=== PATIENT | female | born 1945 | race Caucasian/White ===

== ENCOUNTER → 2016-11-30 | Outpatient (CLI) | payer MEDICARE | END | disposition home or self-care (01) | LOC: CFH 09:06 | PROVIDERS: ATTEND Internal Medicine | DX: Z12.31 Encounter for screening mammogram for malignant neoplasm of breast (principal); R92.1 Mammographic calcification found on diagnostic imaging of breast; Z85.3 Personal history of malignant neoplasm of breast; Z92.3 Personal history of irradiation; Z98.890 Other specified postprocedural states | CPT/HCPCS: G0202 ==

== ENCOUNTER → 2016-12-02 | Outpatient (CLI) | payer MEDICARE | END | disposition home or self-care (01) | LOC: CFH 08:10 | PROVIDERS: ATTEND Internal Medicine | DX: R92.1 Mammographic calcification found on diagnostic imaging of breast (principal); Z85.3 Personal history of malignant neoplasm of breast | CPT/HCPCS: G0206 ==

== ENCOUNTER 2016-12-16 09:06 | Day surgery (SDC) | payer MEDICARE ==
[2016-12-13 09:39] VITALS: BP 166/82
[~2016-12-16] VITALS: Ht 165.1 cm; Wt 46.0 kg
[~2016-12-16 09:06] MED LIST: CALC1CAP8 PO; CETI10CA PO; CHOL10003 PO
[2016-12-16] MEDS ORDERED: ACET-1600 PO (11:10)
[2016-12-16] MEDS ORDERED: ZOLP-413 PO (11:10)
[2016-12-16] MEDS ORDERED: LACTATED RINGERS 1,000 ML IV SCH (11:12)
[2016-12-16] MEDS ORDERED: LIDOCAINE 1%, 2ML ONE (11:18)
[2016-12-16] MEDS ORDERED: SODIUM BICARBONATE 4.2%, 5ML ONE (11:28)
[2016-12-16] MEDS ORDERED: LIDOCAINE 1%-EPI 1:100K, 20ML ONE (11:28)
[2016-12-16] MEDS ORDERED: LIDOCAINE 1%, 2ML SQ PRN (11:30)
[2016-12-16] MEDS ORDERED: BUPIVACAINE/PF-EPI 0.5% 1:200K ONE (13:00)
[2016-12-16] MEDS ORDERED: FENTANYL PF 100 MCG/2ML ONE (13:01)
[2016-12-16] MEDS ORDERED: MIDAZOLAM 1 MG/ML, 2ML ONE (13:01)
[2016-12-16] MEDS ORDERED: CEFAZOLIN 1,000 MG ONE (13:08)
[2016-12-16] MEDS ORDERED: PROPOFOL 10 MG/ML, 20ML ONE (13:08)
[2016-12-16] MEDS ORDERED: DEXAMETHASONE 4 MG/ML, 1ML ONE (13:08)
[2016-12-16] MEDS ORDERED: ONDANSETRON 2MG/ML, 2ML ONE (13:08)
[2016-12-16] MEDS ORDERED: SUCCINYLCHOLINE 20 MG/ML, 10ML ONE (13:08)
[2016-12-16] MEDS ORDERED: ONDANSETRON 2MG/ML, 2ML IVPush PRN (13:30)
[2016-12-16] MEDS ORDERED: OXYcodone 5 MG/5 ML ORAL.SOL UDC PO PRN (13:30)
[2016-12-16] MEDS ORDERED: MEPERIDINE/PF 25MG/0.5ML IVPush PRN (13:30)
[2016-12-16] MEDS ORDERED: ALBUTEROL SULFATE 2.5 MG/3 ML NPPB PRN (13:30)
[2016-12-16] MEDS ORDERED: LABETALOL 5MG/ML, 20ML IV PRN (13:30)
[2016-12-16] MEDS ORDERED: FENTANYL PF 100 MCG/2ML IV PRN (13:30)
[2016-12-16] MEDS ORDERED: PROMETHAZINE 25 MG/ML, 1ML IV PRN (13:30)
[2016-12-16] MEDS ORDERED: MIDAZOLAM 1 MG/ML, 2ML IV PRN (13:30)
[2016-12-16] MEDS ORDERED: hydrALAzine 20 MG/ML, 1ML IV PRN (13:30)
[2016-12-16] MEDS ORDERED: HYDROmorphone 1 MG/ML, 1ML IV PRN (13:30)
[2016-12-16] MEDS ORDERED: ACETAMINOPHEN 650 MG/20.3 ML UDC ONE (14:26)
[2016-12-16] MEDS ORDERED: OXYcodone 5 MG/5 ML ORAL.SOL UDC ONE (14:27)
[2016-12-16] MEDS ORDERED: ACETAMINOPHEN 650 MG/20.3 ML UDC PO ONE (15:00)
== END 2016-12-16 15:50 | disposition home or self-care (01) ==
LOC: CFH 09:06 → OUT 15:50
PROVIDERS: ATTEND Surgery
DX: N60.21 Fibroadenosis of right breast (principal); Z85.3 Personal history of malignant neoplasm of breast; Z85.038 Personal history of other malignant neoplasm of large intestine; Z80.6 Family history of leukemia; Z82.49 Family history of ischemic heart disease and other diseases of the circulatory system; Z82.3 Family history of stroke; Z88.6 Allergy status to analgesic agent; Z88.1 Allergy status to other antibiotic agents; Z87.891 Personal history of nicotine dependence; Z72.89 Other problems related to lifestyle; Z90.710 Acquired absence of both cervix and uterus; Z90.11 Acquired absence of right breast and nipple
CPT/HCPCS: 19125; 19281; 88307; 93005; J0330; J0690; J1100; J2250; J2405; J2704; J3010; J3490; J7120

== ENCOUNTER → 2018-01-18 | Outpatient (CLI) | payer MEDICARE ==
[~2018-01-18] MED LIST changes: +ACET-1600 PO; +ZOLP-413 PO
== END | disposition home or self-care (01) ==
LOC: CFH 08:07
PROVIDERS: ATTEND Internal Medicine
DX: Z12.31 Encounter for screening mammogram for malignant neoplasm of breast (principal); M81.8 Other osteoporosis without current pathological fracture; M89.9 Disorder of bone, unspecified; N95.1 Menopausal and female climacteric states
CPT/HCPCS: 77063; 77080; 77067

== ENCOUNTER 2019-01-24 13:28 | Outpatient (CLI) | payer MEDICARE ==
[2019-01-24] MEDS ORDERED: GADOBUTROL 7.5 MMOL/7.5 ML VIAL ONE (14:47)
== END 2019-01-24 23:59 | disposition home or self-care (01) ==
LOC: CFH 13:28
PROVIDERS: ATTEND Internal Medicine
DX: Z85.09 Personal history of malignant neoplasm of other digestive organs (principal); Z85.3 Personal history of malignant neoplasm of breast
CPT/HCPCS: A9585; C8908; C8937

== ENCOUNTER → 2020-05-23 | Outpatient (CLI) | payer MEDICARE | END | disposition home or self-care (01) | LOC: CFH 09:54 | PROVIDERS: ATTEND Internal Medicine | DX: Z12.31 Encounter for screening mammogram for malignant neoplasm of breast (principal); Z85.3 Personal history of malignant neoplasm of breast; Z80.3 Family history of malignant neoplasm of breast; Z90.12 Acquired absence of left breast and nipple | CPT/HCPCS: 76641; 77063; 77067 ==

== ENCOUNTER → 2020-07-15 | Outpatient (CLI) | payer MEDICARE | END | disposition home or self-care (01) | LOC: CFH 09:39 | PROVIDERS: ATTEND Internal Medicine | DX: M85.88 Other specified disorders of bone density and structure, other site (principal); M81.8 Other osteoporosis without current pathological fracture; M89.9 Disorder of bone, unspecified | CPT/HCPCS: 77080 ==